=== PATIENT | female | born 1955 | race Hispanic/Latino ===

== ENCOUNTER 2020-12-29 15:48 | Emergency (ER) | payer OTHER ==
[2020-12-29 16:18] LABS: BASOPHILS % (AUTO) 0.4 % (0.0-5.0); EOSINOPHILS % (AUTO) 1.8 % (0.0-8.0); HEMATOCRIT 41.6 % (36-48); LYMPHOCYTES % (AUTO) 29.4 % (21.0-51.0); MEAN CORPUSCULAR HEMOGLOBIN 29.5 pg (27.0-33.0); MEAN CORPUSCULAR HGB CONC 31.7 g/dL (32.0-36.0); MEAN CORPUSCULAR VOLUME 92.9 fL (79-99); MONOCYTES % (AUTO) 7.5 % (3.0-13.0); NEUTROPHILS % (AUTO) 60.6 % (40.0-77.0); PLATELET COUNT (AUTO) 246 K/uL (130-400); RED BLOOD CELL COUNT(AUTO) 4.48 MIL/uL (4.00-5.50); RED CELL DISTRIBUTION WIDTH 12.9 % (11.0-15.5); WHITE BLOOD COUNT (AUTO) 9.8 K/uL (4.8-10.8)
[2020-12-29 16:30] LABS: INR 1.08 (0.85-1.15); PROTHROMBIN TIME 11.7 SEC (9.6-11.6)
[2020-12-29 16:31] LABS: PARTIAL THROMBOPLASTIN TIME 22.9 SEC (26.3-35.5)
[2020-12-29 16:36] LABS: CREATININE 0.9 mg/dL (0.5-1.5); POTASSIUM 4.3 mmol/L (3.5-5.1)
[2020-12-29 16:40] LABS: ALBUMIN 3.7 g/dL (3.5-5.0); BILIRUBIN,TOTAL 0.3 mg/dL (0.2-1.0); TOTAL PROTEIN, SERUM 7.5 g/dL (6.0-8.3)
[2020-12-29 16:55] LABS: B-TYPE NATRIURETIC PEPTIDE 19 pg/mL (0-100)
[2020-12-29 17:32] LABS: APPEARANCE,URINE Cloudy (CLEAR); BILIRUBIN,URINE Small (NEGATIVE); COLOR,URINE Dark Yellow (YELLOW); GLUCOSE, URINE (UA) Negative (NEGATIVE); KETONES,URINE Trace mg/dL (NEGATIVE); LEUKOCYTE ESTERASE ,URINE Moderate (NEGATIVE); NITRATE,URINE Negative (NEGATIVE); OCCULT BLOOD,URINE Negative (NEGATIVE); PH,URINE 7.5 (5.0-8.0); PROTEIN,URINE POS 1+ mg/dL (NEGATIVE)
[2020-12-29 17:48] LABS: BACTERIA,URINE Moderate /HPF (None Seen); MUCUS,URINE Moderate LPF (None Seen); SQUAMOUS EPITHELIAL CELL,UR Many /HPF (0-2)
== END 2020-12-29 19:16 | disposition home or self-care (01) ==
LOC: EDH 15:48
DX: R53.1 Weakness (principal); Z91.14 Patient's other noncompliance with medication regimen; F41.9 Anxiety disorder, unspecified; F32.9 Major depressive disorder, single episode, unspecified; I10 Essential (primary) hypertension; E11.9 Type 2 diabetes mellitus without complications; Z72.0 Tobacco use
CPT/HCPCS: 36415; 71045; 80053; 81001; 82550; 83880; 84443; 84484; 85025; 85610; 85730; 87088; 93005

== ENCOUNTER → 2023-04-09 | Outpatient (CLI) | payer OTHER, MEDICARE | END | disposition home or self-care (01) | LOC: RAH 13:05 | PROVIDERS: ATTEND Internal Medicine Gastroenterology | DX: R13.12 Dysphagia, oropharyngeal phase (principal); R63.30 Feeding difficulties, unspecified | CPT/HCPCS: 74230; 92611 ==

== ENCOUNTER → 2023-11-06 | Outpatient (CLI) | payer OTHER, MEDICARE | END | disposition home or self-care (01) | LOC: RAH 10:40 | PROVIDERS: ATTEND Nurse Practitioner Family | DX: J01.90 Acute sinusitis, unspecified (principal); J06.9 Acute upper respiratory infection, unspecified | CPT/HCPCS: 71046 ==

== ENCOUNTER → 2024-03-23 | Outpatient (CLI) | payer OTHER, MEDICARE | END | disposition home or self-care (01) | LOC: RAH 08:26 | PROVIDERS: ATTEND Surgery | DX: K44.9 Diaphragmatic hernia without obstruction or gangrene (principal); R13.12 Dysphagia, oropharyngeal phase; K21.9 Gastro-esophageal reflux disease without esophagitis | CPT/HCPCS: 74240 ==

== ENCOUNTER → 2024-04-03 | Outpatient (CLI) | payer OTHER | END | disposition home or self-care (01) | LOC: RAH 11:25 | PROVIDERS: ATTEND Internal Medicine Cardiovascular Disease | DX: Z13.6 Encounter for screening for cardiovascular disorders (principal) | CPT/HCPCS: 75571 ==

== ENCOUNTER → 2024-06-26 | Outpatient (CLI) | payer OTHER, MEDICARE ==
--- NOTE | 2024-06-26 10:22 | HMCIMG ---
SHOULDER COMP 2+VWS RT HISTORY: Pain COMPARISON: None TECHNIQUE: 2 images of right shoulder were obtained. FINDINGS: There is no acute displaced fracture or dislocation. Degenerative changes are seen. IMPRESSION: 1. Findings as described above.
--- NOTE | 2024-06-26 11:25 | HMCIMG ---
HAND 3+VWS RT HISTORY: Hand pain COMPARISON: None TECHNIQUE: The images of right hand were obtained. FINDINGS: There is no acute displaced fracture or dislocation. Degenerative changes are seen. IMPRESSION: 1. Findings as described above.
--- NOTE | 2024-06-26 11:25 | HMCIMG ---
HAND 3+VWS LT HISTORY: Bilateral hand pain COMPARISON: None TECHNIQUE: 3 images of left hand were obtained. FINDINGS: Intercarpal joint space narrowing and interphalangeal joint space narrowing are seen. There is no acute displaced fracture or dislocation. Degenerative changes are seen. IMPRESSION: 1. Findings as described above.
--- NOTE | 2024-06-26 11:28 | HMCIMG ---
SHOULDER COMP 2+VWS LT HISTORY: Shoulder pain COMPARISON: None TECHNIQUE: 2 images of left shoulder were obtained. FINDINGS: There is no acute displaced fracture or dislocation. Postop changes are seen of the cervical spine. Degenerative changes are seen. IMPRESSION: 1. Findings as described above.
== END | disposition home or self-care (01) ==
LOC: RAH 09:42
PROVIDERS: ATTEND Internal Medicine
DX: M19.011 Primary osteoarthritis, right shoulder (principal); M19.012 Primary osteoarthritis, left shoulder; M19.041 Primary osteoarthritis, right hand; M19.042 Primary osteoarthritis, left hand; M25.511 Pain in right shoulder; M25.512 Pain in left shoulder; M79.641 Pain in right hand; M79.642 Pain in left hand
CPT/HCPCS: 73030; 73130

== ENCOUNTER 2024-08-14 15:16 | Emergency (ER) | payer OTHER, MEDICARE ==
[~2024-08-14] VITALS: Ht 144.8 cm; Wt 69.4 kg
--- NOTE | 2024-08-14 15:39 | EKG ---
[facility] Test Date: 2024-08-14 Test Time: 15:33:57 Pat Name: AMITA DAVE Department: [facility] Room: Gender: F [employer]: [id number] : 1955 Requested By: MYRANDA EPPERSON Order Number: [id number] Reading MD: Bautista Sadler Measurements Intervals [place] Rate: 87 P: 19 MI: 121 QRS: 22 QRSD: 90 T: 2 QT: 352 QTc: 424 Interpretive Statements Sinus rhythm Compared to ECG 12/29/2020 15:53:54 No significant changes Electronically Signed On 08-15-2024 14:09:18 [employer] by Bautista Sadler Please click the below link to view image of tracing.
[2024-08-14 15:56] LABS: BASOPHILS # (AUTO) 0.02 K/uL (0.00-0.20); BASOPHILS % (AUTO) 0.2 % (0.0-5.0); EOSINOPHILS # (AUTO) 0.11 K/uL (0.00-0.70); EOSINOPHILS % (AUTO) 1.2 % (0.0-8.0); HEMATOCRIT 44.6 % (36-48); IMMATURE GRANULOCYTE ABSOLUTE 0.03 K/uL (0-1); LYMPHOCYTES # (AUTO) 0.8 K/uL (1.0-4.8); LYMPHOCYTES % (AUTO) 8.3 % (21.0-51.0); MEAN CORPUSCULAR HEMOGLOBIN 29.5 pg (27.0-33.0); MEAN CORPUSCULAR HGB CONC 32.1 g/dL (32.0-36.0); MONOCYTES # (AUTO) 0.3 K/uL (0.1-1.0); MONOCYTES % (AUTO) 3.6 % (3.0-13.0); NEUTROPHILS # (AUTO) 7.8 K/uL (1.8-7.7); NEUTROPHILS % (AUTO) 86.4 % (40.0-77.0); PLATELET COUNT (AUTO) 231 K/uL (130-400); RED BLOOD CELL COUNT(AUTO) 4.85 MIL/uL (4.00-5.50); RED CELL DISTRIBUTION WIDTH 12.8 % (11.0-15.5); WHITE BLOOD COUNT (AUTO) 9.1 K/uL (4.8-10.8)
[2024-08-14 16:14] LABS: POTASSIUM 4.1 mmol/L (3.5-5.1)
--- NOTE | 2024-08-14 16:27 | HMCIMG ---
Exam Type: CHEST 1VW Clinical Information: CHEST PAIN Comparison: None Findings: The lungs are clear of infiltrates. The heart is normal in size. The bony and soft tissue structures of the chest are unremarkable. Impression: Clear lungs.
[2024-08-14 16:31] LABS: INFLUENZA TYPE A Negative For Type A (NEGATIVE); INFLUENZA TYPE B Negative For Type B (NEGATIVE)
[2024-08-14 16:32] LABS: COVID19 (SARS ANTIGEN RAPID) PRESUMPTIVE NEGATIVE (NEGATIVE)
[2024-08-14 17:33] LABS: B-TYPE NATRIURETIC PEPTIDE 20 pg/mL (0-100)
--- NOTE | 2024-08-14 19:39 | NUR ---
PT DISCHARGE PENDING DUE TO PENDING MORPHINE ORDER
--- NOTE | 2024-08-14 19:52 | ERN ---
General Chief Complaint: Chest Pain Stated Complaint: CP NVD Time Seen by MD: 15:31 Time Seen by Midlevel: 15:31 Source: patient History of Present Illness Initial Comments Patient is a 69-year-old female with a past medical history of anxiety presenting to the emergency department with chest pain. Patient states the chest pain started earlier today however she does have an extensive history of anxiety that requires multiple medications daily. She states that during her previous anxiety attacks she has similar symptoms however today she became concerned so she decided to report to the ER for further evaluation. On arrival she does report her symptoms improving. Denies any other concerns at this time Allergies: Coded Allergies: No Known Drug Allergies (Unverified Allergy, Intermediate, 08/14/24) Past Medical History Past Medical History: Diabetes-Type II, High Cholesterol, Hypertension Past Surgical History: Other Surgical History Other: BACK ROS Dictation CONSTITUTIONAL: Negative except for HPI HEAD/FACE: Negative except for HPI EENT: Negative except for HPI RESPIRATORY: Negative except for HPI GASTROINTESTINAL/ABDOMINAL: Negative except for HPI GENITOURINARY: Negative except for HPI MUSCULOSKELETAL: Negative except for HPI INTEGUMENTARY: Negative except for HPI NEUROLOGICAL/PSYCH: Negative except for HPI HEMATOLOGIC/LYMPHATIC: Negative except for HPI All Systems Negative, Except as noted above. 13 point review of systems assessed and all negative except for above. Physical Exam Physical Exam Dictation Vital Signs reviewed General Appearance: Alert, oriented x 3, no acute distress, well developed, nourished. Head and Face: non-traumatic. Eyes: PERRL, pink conjunctivas, eyelid no trauma, anterior chamber with arcus senilis. Ears: Pinnas intact and no signs of trauma or erythema ear canals clear and no discharge TM no erythema Nose: No discharge, no bleeding. Oropharynx: Mouth normal, tongue pink, pharynx clear,no erythema, tonsils no exudates, no abscesses noted, mucous membrane moist Neck: Supple, non-tender, no thyromegaly, no masses, no JVD, no bruits Breast:Deferred Chest:No tenderness, no crepitus, no paradoxical movement, no retractions Lungs:Clear, well-ventilated, symmetric, no rales, no wheezing, no rhonchi, no stridor, good breath sounds bilaterally Heart: Regular rate, regular rhythm, no murmur, no gallops Vascular: no peripheral edema, Abdomen: Soft, positive bowel sounds, nondistended, no guarding, nontender, no rebound, no masses no hepatomegaly, no splenomegaly, no Recinos's sign, no hernias. Rectal: Deferred Genital: Deferred Neurological: Normal speech, motor function intact, sensory function intact Musculoskeletal: Neck nontender, full range of motion, back nontender, full range of motion, Extremities: nontender, full range of motion Skin: Color pink, dry, no turgor, no rash, no lacerations, no abrasions, no contusions. Lymphatic: Deferred Results Laboratory and Microbiology Lab and Micro Result Laboratory Tests Test 08/14/24 15:30 08/14/24 15:39 Influenza Type A Antigen Negative For Type A Influenza Type B Antigen Negative For Type B SARS-CoV-2 Antigen (Rapid) PRESUMPTIVE NEGATIVE White Blood Count 9.1 K/uL (4.8-10.8) Red Blood Count 4.85 MIL/uL (4.00-5.50) Hemoglobin 14.3 g/dL (12.0-16.0) Hematocrit 44.6 % (36-48) Mean Corpuscular Volume 92.0 fL (79-99) Mean Corpuscular Hemoglobin 29.5 pg (27.0-33.0) Mean Corpuscular Hemoglobin Concent 32.1 g/dL (32.0-36.0) Red Cell Distribution Width 12.8 % (11.0-15.5) Platelet Count 231 K/uL (130-400) Mean Platelet Volume 9.9 fL (7.5-10.5) Immature Granulocyte % (Auto) 0.3 % (0-1) Neutrophils (%) (Auto) 86.4 % (40.0-77.0) H Lymphocytes (%) (Auto) 8.3 % (21.0-51.0) L Monocytes (%) (Auto) 3.6 % (3.0-13.0) Eosinophils (%) (Auto) 1.2 % (0.0-8.0) Basophils (%) (Auto) 0.2 % (0.0-5.0) Neutrophils # (Auto) 7.8 K/uL (1.8-7.7) H Lymphocytes # (Auto) 0.8 K/uL (1.0-4.8) L Monocytes # (Auto) 0.3 K/uL (0.1-1.0) Eosinophils # (Auto) 0.11 K/uL (0.00-0.70) Basophils # (Auto) 0.02 K/uL (0.00-0.20) Absolute Immature Granulocyte (auto 0.03 K/uL (0-1) Nucleated Red Blood Cells 0.0 % (0.0-0.19) White Cell Morphology Comment See comments Sodium Level 142 mmol/L (136-145) Potassium Level 4.1 mmol/L (3.5-5.1) Chloride Level 103 mmol/L (101-111) Carbon Dioxide Level 28 mmol/L (21-32) Blood Urea Nitrogen 24 mg/dL (7-18) H Creatinine 1.0 mg/dL (0.5-1.0) Glomerular Filtration Rate Calc 61 mL/min (>90) Random Glucose 192 mg/dL (70-105) H Total Calcium 9.5 mg/dL (8.5-10.1) Total Creatine Kinase 69 U/L (21-232) B-Type Natriuretic Peptide 20 pg/mL (0-100) Labs Reviewed?: Yes MDM MDM: Differential diagnosis: ACS, anxiety, electrolyte abnormality, dehydration There are no social concerns with this patient. Prescription drug management Prescriptions will include: None Medical management and examination interpretation discussions were had by me with other qualified healthcare professionals as indicated for the patient's care. ED Course Orders Procedure Category Date Status Time Vital Signs Per CPOE 08/14/24 Transmitted Routine 15:28 B-Type Natriuretic LAB 08/14/24 Complete Peptide 15:28 Chest 1vw RAD 08/14/24 Resulted 15:28 12 Lead Ekg Tracing- EKG 08/14/24 Complete Technical 15:28 Oxygen By Nc/Pulse Ox CPOE 08/14/24 Transmitted 15:28 Maintain Iv CPOE 08/14/24 Transmitted 15:28 Iv Insertion CPOE 08/14/24 Transmitted 15:28 Cardiac Monitoring CPOE 08/14/24 Transmitted 15:28 Pulse Oximetry With CPOE 08/14/24 Transmitted Vs And Prn 15:28 Cbc With Differential LAB 08/14/24 Complete 15:28 Activity: Br W/Brp CPOE 08/14/24 Transmitted With Assist 15:28 Creatine Kinase, Total LAB 08/14/24 Complete 15:28 Urinalysis Profile LAB 08/14/24 Logged 15:28 Troponin Poc Order LAB 08/14/24 Complete Only 15:28 Bedside Troponin-I LAB.ER 08/14/24 Complete (Poc) 15:28 Basic Metabolic Panel LAB 08/14/24 Complete 15:28 Covid19 (Sars Antigen LAB 08/14/24 Complete Rapid) 15:29 Influenza Type A & B, LAB 08/14/24 Complete Rapid 15:29 Morphine 2mg Syg PHA 08/14/24 Complete (Morphine 2mg Syg) 20:00 Current Medications Medications (Trade) Dose Ordered Sig/Skip Route PRN Reason Start Time Stop Time Status Last Admin Dose Admin Morphine Sulfate (morPHINE 2MG SYG) 2 mg ONCE ONCE IM 08/14/24 20:00 08/14/24 20:01 DC 08/14/24 20:56 Vital Signs Date Time Temp Pulse Resp B/P (MAP) Pulse Ox O2 Delivery O2 Flow Rate FiO2 08/14/24 20:58 98.1 74 18 122/67 98 Room Air* 0 21 08/14/24 15:31 98.1 77 20 112/52 98 Room Air [address] [address] IMAGING REPORT Signed PATIENT: AMITA DAVE MR#: [id number] : 1955 SEX: F AGE: 69 LOCATION: [facility] ORDER 1529 STATUS: REG ER REPORT#: [id number] SERVICE 1528 REASON: CHEST PAIN ORDERING PHYSICIAN: MYRANDA EPPERSON MD PROCEDURE: CXR1VW - CHEST 1VW Exam Type: CHEST 1VW Clinical Information: CHEST PAIN Comparison: None Findings: The lungs are clear of infiltrates. The heart is normal in size. The bony and soft tissue structures of the chest are unremarkable. Impression: Clear lungs. DICTATED BY: FANTASMA KEITH MD DATE: 08/14/241622 ELECTRONICALLY SIGNED BY: FANTASMA KEITH MD DATE: 08/14/241626 HEART Score Response (Comments) Value History: Low suspicion (0) 0 EKG: Normal 0 Age: > 65yrs (+2) 2 Risk Factors: 1-2 risk factors (+1) 1 Initial Troponin: Normal limit (0) 0 HEART Score Risk: Low Risk for MACE (1-3) Total 3 DX & DISP Disposition: Discharge Departure Impression: Primary Impression: Non-cardiac chest pain Additional Impression: History of anxiety Condition: Stable Referrals: RICK AMEZQUITA MD (PCP) I have reviewed the case, and I agree with, Diagnosis and Plan I performed the substantive portion of the visit. I have reviewed and personally made and approve the management plan that is documented in the note by myself or the GERARDO. I acknowledge for responsibility for the patient's management plan. VIANEY ANDREW Aug 14, 2024 19:52
[2024-08-14] MEDS: morPHINE 2 MG SYG IM ONE (20:56)
[2024-08-14 20:58] VITALS: BP 122/67; PULSE 74; RESP 18; TEMP 98.1; O2SAT 98
== END 2024-08-14 20:59 | disposition home or self-care (01) ==
LOC: EDH 15:16
DX: R07.89 Other chest pain (principal); F41.9 Anxiety disorder, unspecified; E11.9 Type 2 diabetes mellitus without complications; E78.00 Pure hypercholesterolemia, unspecified; I10 Essential (primary) hypertension; Z20.822 Contact with and (suspected) exposure to COVID-19; Z98.890 Other specified postprocedural states
CPT/HCPCS: 99285; 71045; 87426; 82550; 84484; 80048; 83880; 85025; 87804 ×2; 36415; 96372; 93005; J2270

== ENCOUNTER 2024-11-15 11:12 | Emergency (ER) | payer OTHER, MEDICARE ==
[~2024-11-15] VITALS: Ht 154.9 cm; Wt 69.4 kg
--- NOTE | 2024-11-15 11:46 | HMCIMG ---
CT CERVICAL SPINE WITHOUT CONTRAST INDICATION: Neck pain after fall TECHNIQUE: Contiguous axial computed tomography imaging using 2 mm slice thickness through the cervical spine. Reconstructions in the sagittal and coronal planes. CT was performed with one or more of the following dose reduction techniques: Automated exposure control, adjustment of the mA and/or kV according to patient size, or use of iterative reconstruction technique. COMPARISON: None. FINDINGS: Streak artifact from C5-C6 fusion hardware and interbody hardware with C5-C6 fusion changes noted. Mild to moderate right and mild left uncovertebral joint arthrosis contributes to similar degree of osseous neuroforaminal narrowing. Straightening of the normal cervical lordosis. Vertebral bodies are normal stature without evidence for compression deformity or fracture. No evidence for subluxation. The intervertebral disc heights are well-preserved. The craniocervical junction appears normal. The atlantoaxial articulation is within normal limits. The dens is intact. The pre- and paravertebral soft tissues appear unremarkable. IMPRESSION: No evidence for fracture or subluxation.
--- NOTE | 2024-11-15 11:46 | HMCIMG ---
CT HEAD WITHOUT CONTRAST INDICATION: Fall TECHNIQUE: Noncontrast axial helical CT images from the vertex through the skull base using 5 mm slice thickness without contrast material. CT was performed with one or more of the following dose reduction techniques: Automated exposure control, adjustment of the mA and/or kV according to patient size, or use of iterative reconstruction technique. COMPARISON: None FINDINGS: The cerebral and cerebellar hemispheres are age-appropriate in appearance. No evidence for abnormal extra-axial fluid collections or masses. The ventricles and sulci are normal in size and configuration. No evidence for intracranial parenchymal, epidural, or subdural hemorrhage, mass effect or midline shift. The simmons-white matter differentiation is well preserved. No secondary evidence to suggest acute ischemia. Mild calcific plaque is present along the deleon of the cavernous segments of both internal carotid arteries, including mild along the deleon of both vertebral arteries at the level of the foramen magnum. The brainstem and cerebellum appear normal. The visualized orbits appear unremarkable. The visible paranasal sinuses and mastoid air cells are clear. The calvarium appears normal. IMPRESSION: No acute intracranial process identified.
--- NOTE | 2024-11-15 11:50 | HMCIMG ---
RIGHT SHOULDER RADIOGRAPHS - 2-3 VIEWS INDICATION: Pain COMPARISON: None FINDINGS: No fracture or dislocation identified. Acromioclavicular and glenohumeral alignments are well maintained. Visible portions of the right clavicle are intact. IMPRESSION: No evidence for fracture or dislocation.
--- NOTE | 2024-11-15 12:00 | ERN ---
General Chief Complaint: Mechanical Fall Stated Complaint: FALL Time Seen by MD: 11:14 Time Seen by Midlevel: 11:14 Source: patient History of Present Illness Initial Comments The patient is a 69-year-old female presenting to the emergency department following a mechanical ground level fall. The patient reports slipping and falling hitting the right side of her head three days ago. She also reports pain to her right shoulder. Denies any loss of consciousness. Denies any blood thinners. She does report having a history of trigeminal neuralgia in his unsure if the right-sided headache is from the trigeminal neuralgia or from the fall. Denies any other symptoms at this time. Allergies: Coded Allergies: No Known Drug Allergies (Unverified Allergy, Intermediate, 08/14/24) Past Medical History Past Medical History: Diabetes-Type II, High Cholesterol, Hypertension Past Surgical History: Other Surgical History Other: BACK ROS Dictation CONSTITUTIONAL: Negative except for HPI HEAD/FACE: Negative except for HPI EENT: Negative except for HPI RESPIRATORY: Negative except for HPI GASTROINTESTINAL/ABDOMINAL: Negative except for HPI GENITOURINARY: Negative except for HPI MUSCULOSKELETAL: Negative except for HPI INTEGUMENTARY: Negative except for HPI NEUROLOGICAL/PSYCH: Negative except for HPI HEMATOLOGIC/LYMPHATIC: Negative except for HPI All Systems Negative, Except as noted above. 13 point review of systems assessed and all negative except for above. Physical Exam Physical Exam Dictation Vital Signs reviewed General Appearance: Alert, oriented x 3, no acute distress, well developed, nourished. Head and Face: non-traumatic. Eyes: PERRL, pink conjunctivas, eyelid no trauma, anterior chamber with arcus senilis. Ears: Pinnas intact and no signs of trauma or erythema ear canals clear and no discharge TM no erythema Nose: No discharge, no bleeding. Oropharynx: Mouth normal, tongue pink, pharynx clear,no erythema, tonsils no exudates, no abscesses noted, mucous membrane moist Neck: Supple, non-tender, no thyromegaly, no masses, no JVD, no bruits Breast:Deferred Chest:No tenderness, no crepitus, no paradoxical movement, no retractions Lungs:Clear, well-ventilated, symmetric, no rales, no wheezing, no rhonchi, no stridor, good breath sounds bilaterally Heart: Regular rate, regular rhythm, no murmur, no gallops Vascular: no peripheral edema, Abdomen: Soft, positive bowel sounds, nondistended, no guarding, nontender, no rebound, no masses no hepatomegaly, no splenomegaly, no Recinos's sign, no hernias. Rectal: Deferred Genital: Deferred Neurological: Normal speech, motor function intact, sensory function intact Musculoskeletal: Neck nontender, full range of motion, back nontender, full range of motion, Extremities: nontender, full range of motion Skin: Color pink, dry, no turgor, no rash, no lacerations, no abrasions, no c ontusions. Lymphatic: Deferred MDM MDM: The patient is a 69-year-old female presenting to the emergency department following a mechanical ground level fall. The patient reports slipping and falling hitting the right side of her head three days ago. She also reports pain to her right shoulder. Denies any loss of consciousness. Denies any blood thinners. She does report having a history of trigeminal neuralgia in his unsure if the right-sided headache is from the trigeminal neuralgia or from the fall. Denies any other symptoms at this time. On physical examination patient is in no acute distress. She was a subjective headache that is localized to the right side. No signs of external trauma however given age and mechanism of injury a CT scan of the head and neck were obtained. She was so reports pain over her right shoulder with restricted range motion on physical examination. Shoulder x-ray was obtained which does not reveal any acute fracture or dislocation. CT head and C-spine are negative for any acute injury. The patient was observed in the emergency department for1 hour and has remained stable. We will discharged home with close return precautions. Differential diagnosis: There are no social concerns with this patient. Prescription drug management Prescriptions will include: Medical management and examination interpretation discussions were had by me with other qualified healthcare professionals as indicated for the patient's care. ED Course Orders Procedure Category Date Status Time Ct Head/Brain W/O CT 11/15/24 Resulted Contrast 11:14 Ct Cervical Spine W/O CT 11/15/24 Resulted Contrast 11:14 Shoulder Comp 2+Vws Rt RAD 11/15/24 Resulted 11:14 Vital Signs Date Time Temp Pulse Resp B/P (MAP) Pulse Ox O2 Delivery O2 Flow Rate FiO2 11/15/24 11:21 98.1 84 16 168/64 94 Room Air* 0 21 11/15/24 11:14 98.1 84 16 168/64 94 Room Air 0 [facility] [address] [address] IMAGING REPORT Signed PATIENT: AMITA DAVE MR#: [id number] : 1955 SEX: F AGE: 69 LOCATION: [facility] ORDER 1115 STATUS: REG REPORT#: [id number] SERVICE 1114 REASON: fall ORDERING PHYSICIAN: VIANEY ANDREW PROCEDURE: HEAD WO - CT HEAD/BRAIN W/O CONTRAST CT HEAD WITHOUT CONTRAST INDICATION: Fall TECHNIQUE: Noncontrast axial helical CT images from the vertex through the skull base using 5 mm slice thickness without contrast material. CT was performed with one or more of the following dose reduction techniques: Automated exposure control, adjustment of the mA and/or kV according to patient size, or use of iterative reconstruction technique. COMPARISON: None FINDINGS: The cerebral and cerebellar hemispheres are age-appropriate in appearance. No evidence for abnormal extra-axial fluid collections or masses. The ventricles and sulci are normal in size and configuration. No evidence for intracranial parenchymal, epidural, or subdural hemorrhage, mass effect or midline shift. The simmons-white matter differentiation is well preserved. No secondary evidence to suggest acute ischemia. Mild calcific plaque is present along the deleon of the cavernous segments of both internal carotid arteries, including mild along the deleon of both vertebral arteries at the level of the foramen magnum. The brainstem and cerebellum appear normal. The visualized orbits appear unremarkable. The visible paranasal sinuses and mastoid air cells are clear. The calvarium appears normal. IMPRESSION: No acute intracranial process identified. DICTATED BY: WOODY OLIVEIRA MD DATE: 11/15/24 1142 ELECTRONICALLY SIGNED BY: WOODY OLIVEIRA MD DATE: 11/15/24 1146 [facility] [address] [address] IMAGING REPORT Signed PATIENT: AMITA DAVE MR#: [id number] : 1955 SEX: F AGE: 69 LOCATION: ED ORDER 14 STATUS: REG [facility] REPORT#: [id number] SERVICE 13 REASON: fall ORDERING PHYSICIAN: VIANEY ANDREW PROCEDURE: C SPIN WO - CT CERVICAL SPINE W/O CONTRAST CT CERVICAL SPINE WITHOUT CONTRAST INDICATION: Neck pain after fall TECHNIQUE: Contiguous axial computed tomography imaging using 2 mm slice thickness through the cervical spine. Reconstructions in the sagittal and coronal planes. CT was performed with one or more of the following dose reduction techniques: Automated exposure control, adjustment of the mA and/or kV according to patient size, or use of iterative reconstruction technique. COMPARISON: None. FINDINGS: Streak artifact from C5-C6 fusion hardware and interbody hardware with C5-C6 fusion changes noted. Mild to moderate right and mild left uncovertebral joint arthrosis contributes to similar degree of osseous neuroforaminal narrowing. Straightening of the normal cervical lordosis. Vertebral bodies are normal stature without evidence for compression deformity or fracture. No evidence for subluxation. The intervertebral disc heights are well-preserved. The craniocervical junction appears normal. The atlantoaxial articulation is within normal limits. The dens is intact. The pre- and paravertebral soft tissues appear unremarkable. IMPRESSION: No evidence for fracture or subluxation. DICTATED BY: WOODY OLIVEIRA MD DATE: 11/15/24 114 ELECTRONICALLY SIGNED BY: WOODY OLIVEIRA MD DATE: 11/15/24 1146 [place] [id number] IMAGING REPORT Signed PATIENT: AMITA DAVE MR#: [id number] : 1955 SEX: F AGE: 69 LOCATION: ED ORDER 14 STATUS: REG [facility] REPORT#: [id number] SERVICE 13 REASON: fall ORDERING PHYSICIAN: VIANEY ANDREW PROCEDURE: SHOL 2V RT - SHOULDER COMP 2+VWS RT RIGHT SHOULDER RADIOGRAPHS - 2-3 VIEWS INDICATION: Pain COMPARISON: None FINDINGS: No fracture or dislocation identified. Acromioclavicular and glenohumeral alignments are well maintained. Visible portions of the right clavicle are intact. IMPRESSION: No evidence for fracture or dislocation. DICTATED BY: WOODY OLIVEIRA MD DATE: 11/15/24 1146 ELECTRONICALLY SIGNED BY: WOODY OLIVEIRA MD DATE: 11/15/24 1150 DX & DISP Disposition: Discharge Departure Impression: Primary Impression: Ground-level fall Additional Impression: Closed head injury Condition: Stable Additional Instructions: Your CT scan of the head and neck are negative for any acute fracture. Your x-ray of the right shoulder does not show any evidence of an acute fracture or dislocation. Please follow up with your primary care doctor in 2-3 days for repeat evaluation. You may take Tylenol and Motrin as needed for pain. Referrals: RICK AMEZQUITA MD (PCP) Time of Disposition: 11:57 I have reviewed the case, and I agree with, Diagnosis and Plan I performed the substantive portion of the visit. I have reviewed and personally made and approve the management plan that is documented in the note by myself or the GERARDO. I acknowledge for responsibility for the patient's management plan. VIANEY ANDREW Nov 15, 2024 12:00
[2024-11-15 12:02] VITALS: BP 133/70; PULSE 83; RESP 16; TEMP 98; O2SAT 94
== END 2024-11-15 12:02 | disposition home or self-care (01) ==
LOC: EDH 11:12
DX: S09.90XA Unspecified injury of head, initial encounter (principal); E11.9 Type 2 diabetes mellitus without complications; E78.00 Pure hypercholesterolemia, unspecified; I10 Essential (primary) hypertension; W18.39XA Other fall on same level, initial encounter; Y93.89 Activity, other specified; Y92.89 Other specified places as the place of occurrence of the external cause; Y99.8 Other external cause status
CPT/HCPCS: 70450; 72125; 73030; 99284

== ENCOUNTER → 2024-12-17 | Outpatient (CLI) | payer OTHER, MEDICARE ==
--- NOTE | 2024-12-17 09:31 | HMCIMG ---
NM HIDA WITH EF/CCK REASON: RIGHT UPPER QUADRANT PAIN. COMPARISON: None TECHNIQUE: Hepatobiliary imaging study was performed with 7 mCi of technetium Choletec through intravenous route. Gallbladder ejection fraction study was performed with 1.4 mcg of CCK through intravenous route. FINDINGS: There is normal visualization of gallbladder and bowel activity within 1 hour. Gallbladder ejection fraction is 56% which is within normal limits. IMPRESSION: Normal hepatobiliary imaging study. Normal gallbladder ejection fraction of 56%.
== END | disposition home or self-care (01) ==
LOC: RAH 07:13
PROVIDERS: ATTEND Internal Medicine Gastroenterology
DX: R10.11 Right upper quadrant pain (principal)
CPT/HCPCS: 78227; A9537

== ENCOUNTER → 2024-12-22 | Outpatient (CLI) | payer OTHER, MEDICARE ==
--- NOTE | 2024-12-22 12:27 | HMCIMG ---
Exam Type: HAND 3+VWS RT Clinical Information: PAIN IN RIGHT HAND Comparison: None Findings: The bone examination is unremarkable. No fractures or dislocations are seen. No radiopaque foreign bodies are noted. Soft tissues are preserved. IMPRESSION: Normal examination.
== END | disposition home or self-care (01) ==
LOC: LAB 11:13
PROVIDERS: ATTEND Nurse Practitioner Family
DX: M79.641 Pain in right hand (principal)
CPT/HCPCS: 73130

== ENCOUNTER → 2025-05-03 | Outpatient (CLI) | payer OTHER, MEDICARE ==
--- NOTE | 2025-05-03 21:06 | HMCIMG ---
EXAM: XR Cervical spine, 4 View total. CLINICAL HISTORY: 69-year-old female with cervicalgia. COMPARISON: None provided. FINDINGS: BONES: ACDF fixation screws are in place in the lower cervical spine. No acute fracture or aggressive appearing osseous lesion. Posterior vertebral body alignment is within normal limits in the cervical spine. DISCS/DEGENERATIVE CHANGES: The disc spaces are preserved. SOFT TISSUES: No prevertebral soft tissue swelling evident in the cervical spine. The visualized lungs appear clear. IMPRESSION: 1. No acute abnormality evident in the cervical spine. /[place]
== END | disposition home or self-care (01) ==
LOC: RAH 12:07
PROVIDERS: ATTEND Nurse Practitioner Family
DX: M54.12 Radiculopathy, cervical region (principal); M54.2 Cervicalgia; Z98.1 Arthrodesis status
CPT/HCPCS: 72040